=== PATIENT | male | born 1940 | race Caucasian/White ===

== ENCOUNTER 2017-02-24 10:14 | Inpatient (IN) | payer OTHER ==
[2016-11-24 09:28] VITALS: BMI 32.0
--- NOTE | 2016-11-24 10:08 | PAT Medication Instructions ---
Service Date Nov 24, 2016. Current Home Medication List Acetaminophen (Tylenol Arthritis Ext Rel), 650 MG PO Q8H PRN for Pain Acetaminophen/Codeine (Tylenol W/Codeine #3), 1 TAB PO Q6 PRN for Pain Alprazolam (Xanax), 0.25 MG PO DAILY PRN for Anxiety Aspirin (Aspirin Ec), 81 MG PO QAM Cholecalciferol (Vitamin D3), 1 TAB PO QPM Fluoxetine (Prozac), 20 MG PO QAM Glucosamine-Chondroitin (Osteo Bi-Flex Regular Str), 1 TAB PO BID Hydrocortisone (Hydrocortisone), 1 APPLN TOP BID PRN for PRN Isosorbide Mononitrate (Isosorbide Mononitrate), 30 MG PO HS Losartan Potassium (Cozaar), 50 MG PO BID Nitroglycerin (Nitrostat), 0.4 MG UT PRN PRN for CHEST PAIN [place]-3 Fatty Acids ([place] 3), 1 CAP PO QPM Polyethylene Glycol-Propylene (Systane), 1 DROPS OP QID PRN for PRN Rosuvastatin Calcium (Crestor), 5 MG PO HS Zolpidem Tartrate (Zolpidem Tartrate), 1 TAB PO HS PRN for Insomnia Medication Instructions For Your Scheduled Surgery - Check with surgeon/wearing apparel shaker for instructions: Aspirin (Aspirin Ec), 81 MG PO QAM - Hold the following medications 2 weeks prior to surgery: [place]-3 Fatty Acids ([place] 3), 1 CAP PO QPM Glucosamine-Chondroitin (Osteo Bi-Flex Regular Str), 1 TAB PO BID - Hold the following medications 24 hours prior to surgery: Hydrocortisone (Hydrocortisone), 1 APPLN TOP BID PRN for PRN - Hold the following medications the morning of surgery: Losartan Potassium (Cozaar), 50 MG PO BID Cholecalciferol (Vitamin D3), 1 TAB PO QPM - Take the following medications the morning of surgery with a sip of water: Polyethylene Glycol-Propylene (Systane), 1 DROPS OP QID PRN for PRN (if needed) Nitroglycerin (Nitrostat), 0.4 MG UT PRN PRN for CHEST PAIN (if needed) Fluoxetine (Prozac), 20 MG PO QAM Alprazolam (Xanax), 0.25 MG PO DAILY PRN for Anxiety (if needed) Acetaminophen (Tylenol Arthritis Ext Rel), 650 MG PO Q8H PRN for Pain (if needed) Acetaminophen/Codeine (Tylenol W/Codeine #3), 1 TAB PO Q6 PRN for Pain (okay to take up to 4 hours prior to surgery if needed) - Take the following medications as scheduled the night before surgery: Zolpidem Tartrate (Zolpidem Tartrate), 1 TAB PO HS PRN for Insomnia (if needed) Polyethylene Glycol-Propylene (Systane), 1 DROPS OP QID PRN for PRN (if needed) Rosuvastatin Calcium (Crestor), 5 MG PO HS Isosorbide Mononitrate (Isosorbide Mononitrate), 30 MG PO HS Nitroglycerin (Nitrostat), 0.4 MG UT PRN PRN for CHEST PAIN (if needed) Losartan Potassium (Cozaar), 50 MG PO BID Alprazolam (Xanax), 0.25 MG PO DAILY PRN for Anxiety (if needed) Acetaminophen (Tylenol Arthritis Ext Rel), 650 MG PO Q8H PRN for Pain (if needed) Acetaminophen/Codeine (Tylenol W/Codeine #3), 1 TAB PO Q6 PRN for Pain (if needed) If you have any questions please call us at [phone] (Dawn David PA-C ) or [phone] or [phone]
--- NOTE | 2016-11-24 10:44 | DIAGNOSTIC IMAGING REPORT ---
CHEST PREADMISSION(PA/LAT) HISTORY: Preop. COMPARISON: None. FINDINGS: The lungs are clear. Cardiac silhouette is normal in size. No pleural effusions. No pneumothorax. Poststernotomy changes. IMPRESSION: No acute process. Electronically signed by: Cruz Catalan M.D. 11/24/2016 10:42 AM
[2016-11-24 10:48] LABS: MEAN CORPUSCULAR HGB CONC 34.9 g/dl (32-36); MEAN PLATELET VOLUME 9.3 fL (7.4-10.4); PLATELET COUNT 229 K/uL (130-400)
[2016-11-24 10:49] LABS: URINE APPEARANCE CLEAR (CLEAR); URINE BILIRUBIN NEG (NEG); URINE COLOR YELLOW; URINE NITRITE NEG (NEG); URINE SPECIFIC GRAVITY 1.019 (1.000-1.030); UROBILINOGEN NEG (NEG)
[2016-11-24 10:54] LABS: MANUAL MICROSCOPIC REQUIRED? NO; REVIEW REQ? NO
[2016-11-24 11:20] LABS: BASO % 0.4 %; BASO ABS # 0.03 K/uL (0-0.2); COMPLETE YES; EOS % 1.7 %; HEMATOCRIT 42.4 % (42-52); IG% 0.1 %; LYMPH % 34.7 %; MONO % 8.8 %; NEUT % 54.3 %; RED BLOOD COUNT 4.93 M/uL (4.7-6.1); WHITE BLOOD COUNT 8.06 K/uL (4.8-10.8)
[2016-11-24 11:29] LABS: BUN/CREATININE RATIO 21.3 (10-20); CALCIUM 9.2 mg/dl (8.5-10.1); CREATININE 0.98 mg/dl (0.60-1.40); POTASSIUM 4.1 mmol/L (3.5-5.1)
--- NOTE | 2016-12-30 07:36 | History & Physical Bridge Note ---
H&P Re-Evaluation Bridge Note: I have examined the patient, reviewed the History & Physical and in the interval since the performance of the History & Physical I have noted the following changes of clinical significance: No changes noted
[2017-02-09 12:23] LABS: BUN/CREATININE RATIO 18.1 (10-20); CALCIUM 8.9 mg/dl (8.5-10.1); CREATININE 0.92 mg/dl (0.60-1.40)
--- NOTE | 2017-02-23 15:35 | HISTORY & PHYSICAL EXAMINATION ---
DATE OF ADMISSION: 02/24/2017 CHIEF COMPLAINT: Back pain with bilateral leg pain, worsening with activity. HISTORY OF PRESENT ILLNESS: Mr. Rae is a patient who is well known to our practice. We have been following him for difficulties with his lower back for some time. He has known spinal stenosis which is multilevel in nature. It has gotten to the point where he can no longer stand or walk or perform his normal daily activities. At this point is considering surgical intervention. He has failed all conservative measures. He denies any other numbness, tingling or paresthesias. Denies any change in bladder or bowel function. PAST MEDICAL HISTORY: Significant for acid reflux, arthritis, hypertension, depression, and cardiac bypass surgery in 2007, hypercholesterolemia, shortness of breath. PAST SURGICAL HISTORY: Significant for carpal tunnel release in 1990. MEDICATIONS: Include Crestor, omeprazole, amlodipine, Celexa, Toprol, meclizine, alprazolam and Ecotrin. ALLERGIES: He has no listed drug allergies. REVIEW OF SYSTEMS: Negative except noted in HPI SOCIAL HISTORY: The patient is a 76-year-old male. He is with 5 children. Denies any alcohol or current tobacco use. Denies any illicit drug use. PHYSICAL EXAMINATION: GENERAL: Stands with an apparent level pelvis. Arnold line is midline. Moves slowly about the exam room. MUSCULOSKELETAL: Lower extremity motor exam reveals no focal atrophy. Strength 5/5 to detailed muscle testing without exception. Sensation intact to light touch. Proprioception is also intact. Gait stable. Visual huerta are grossly intact. ABDOMEN: Soft and nontender. EXTREMITIES: Calves are supple and nontender. Peripheral pulses are palpable. The patient is alert and oriented. CARDIOVASCULAR EXAMINATION: Reveals no gross abnormalities. Skin is intact. RADIOGRAPHIC IMAGES: Recent MRI of the lumbar spine performed and revealing multilevel spondylosis. There is significant spinal stenosis at the L2-3, L3-4, L4-5, and L5-S1 segments. This is graded moderate to severe in terms of central lateral recess and foraminal disease. ASSESSMENT: Multilevel multifactorial spinal stenosis, refractory to conservative measures. PLAN: At this point, we are considering possible surgical intervention. Surgically would perform lumbar decompression from L2 to sacrum. This will be done in conjunction with instrumented fusion. The main benefit of this approach is significant chance for reduction of his radicular complaints to a lesser degree his lower back pain. Risk of the surgery include but are not limited to from anesthetic, stroke, blindness, infection, bleeding requiring transfusion, incomplete relief of symptoms, adjacent level disease with need for reoperation. After a thorough discussion he will proceed with surgery as outlined above. He will contact us with any other questions or concerns. AMANDA
[2017-02-24] VITALS (7 sets, daily range): BP systolic 119–165; BP diastolic 64–80; PULSE 56–84; TEMP 36.4–37; O2SAT 96–98; Ht 162.6 cm; Wt 84.6 kg
[~2017-02-24] VITALS: Ht 162.6 cm; Wt 84.6 kg
[~2017-02-24 10:14] MED LIST: ACET-749 PO; ACET1TAB84 PO; ALPR-411 PO; ASPI81TA28 PO; CEFAZOLIN 2000 MG/60 ML D5W IV SCH; CHOL1000 PO; DC PCA ONE; FLUO20CA35 PO; GLUCTAB18 PO; HYDCR25 TOP; ISM20 PO; LACTATED RINGER'S 1000ML 1,000 ML IV SCH; LOSA50TA6 PO; NTRGSL/4 UT; OMEG12006 PO; POLYSOL4 OP; ROSU5TAB PO; ZOLP10TA6 PO
[2017-02-24] MEDS ORDERED: FENTANYL CITRATE INJ 50 MCG/1 ML 2 ML VIAL ONE ×3 (11:25→15:29)
[2017-02-24] MEDS ORDERED: MIDAZOLAM HCL 1 MG/ML 2ML VIAL ONE (11:25)
[2017-02-24] MEDS ORDERED: SODIUM CHLORIDE 0.9% PF 50 ML VIAL ONE (11:55)
[2017-02-24] MEDS ORDERED: BUPIVACAINE/EPINEPHRINE 0.5% MPF 1:200,000 30 ML VIAL ONE (11:55)
[2017-02-24] MEDS ORDERED: BACITRACIN 50000 UNIT VIAL ONE (11:55)
[2017-02-24] MEDS ORDERED: EpHEDrine SULFATE INJ 50 MG/ML AMP IV PRN (12:30)
[2017-02-24] MEDS ORDERED: MEPERIDINE HCL 25 MG/ML CARP IV PRN (12:30)
[2017-02-24] MEDS ORDERED: HYDROmorphone INJ 1 MG/ML SYR IV PRN (12:30)
[2017-02-24] MEDS ORDERED: ONDANSETRON INJ 2 MG/ML 2 ML VIAL IV PRN ×2 (12:30→15:15)
[2017-02-24] MEDS ORDERED: LABETALOL HCL IV 5 MG/ML 20ML IV PRN (12:30)
[2017-02-24] MEDS ORDERED: ATROPINE SULFATE 0.1 MG/ML 5ML SYR IV PRN (12:30)
[2017-02-24] MEDS ORDERED: HYDROmorphone INJ 2 MG/ML SYR/VIAL ONE (12:32)
[2017-02-24] MEDS ORDERED: DEXAMETHASONE SOD INJ 4 MG/ML VIAL ONE (14:13)
[2017-02-24] MEDS ORDERED: EpHEDrine SULFATE 50MG/5ML SYR ONE (14:13)
[2017-02-24] MEDS ORDERED: LIDOCAINE HCL 2% 2 ML VIAL (20MG/ML) ONE (14:13)
[2017-02-24] MEDS ORDERED: ROCURONIUM BROMIDE 10 MG/ML 5 ML VIAL ONE (14:13)
[2017-02-24] MEDS ORDERED: ONDANSETRON INJ 2 MG/ML 2 ML VIAL ONE ×2 (14:13→14:58)
[2017-02-24] MEDS ORDERED: PROPOFOL IV EMULSION 10 MG/ML 20 ML VIAL IV ONE (14:13)
[2017-02-24] MEDS ORDERED: SODIUM CHLORIDE 0.9% 1000ML 1,000 ML IV SCH (15:14)
--- NOTE | 2017-02-24 15:14 | [facility] Post Operative Brief Note ---
Immediate Operative Summary Operative Date Feb 24, 2017. Pre-Operative Diagnosis Multilevel multifactorial spinal stenosis, refractory to conservative measures Post-Operative Diagnosis Same as pre-operative diagnosis Procedure(s) Performed L2-S1 Lumbar Laminectomy, Decompression, Posterior Spinal Fusion, Instrumentation, Iliac [place] Fixation, Interbody Fusion With Application of Interbody Cage at L5-S1; Bone Morphogenetic Protein; [place] Surgeon Dr. Bogdan Dietrich Oyster Farmer Surgeon(s) Scooby Bruce PA-C Estimated Blood Loss 400ML Findings stenosis Specimens None per surgeon
[2017-02-24] MEDS ORDERED: hydrOXYzine HCL 25 MG TAB PO PRN (15:15)
[2017-02-24] MEDS ORDERED: SOD PHOSPHATE/SOD BIPHOSPHATE ENEMA 132 ML BTL PR PRN (15:15)
[2017-02-24] MEDS ORDERED: NALOXONE HCL 0.4 MG/1 ML VIAL/CARP IV PRN ×2 (15:15)
[2017-02-24] MEDS ORDERED: ACETAMINOPHEN 500 MG TAB PO PRN (15:15)
[2017-02-24] MEDS ORDERED: NITROGLYCERIN 0.4 MG SL PER TAB CHARGE UT PRN (15:15)
[2017-02-24] MEDS ORDERED: ALUMINUM/MAGNESIUM SUSP 30 ML UDC PO PRN (15:15)
[2017-02-24] MEDS ORDERED: ACETAMINOPHEN IV 100 ML IV PRN (15:15)
[2017-02-24] MEDS ORDERED: LORAZEPAM INJ 0.5 MG in SYRINGE 0 ML IV PRN (15:15)
[2017-02-24] MEDS ORDERED: METOCLOPRAMIDE HCL INJ 5 MG/ML 2 ML VIAL IV PRN (15:15)
[2017-02-24] MEDS ORDERED: MAGNESIUM HYDROXIDE SUSP 30 ML UDC PO PRN (15:15)
[2017-02-24] MEDS ORDERED: LORAZEPAM 0.5 MG TAB PO PRN (15:15)
[2017-02-24] MEDS ORDERED: DO NOT ADMINISTER FLU VACCINE PRN ×3 (15:15)
[2017-02-24] MEDS ORDERED: FAMOTIDINE 20 MG TAB PO PRN (15:15)
[2017-02-24] MEDS ORDERED: DO NOT ADMINISTER PNEUMOCOCCAL VACCINE PRN ×2 (15:15)
[2017-02-24] MEDS ORDERED: PROMETHAZINE HCL INJ 12.5 MG in SODIUM CHLORIDE 0.9% 50ML 50 ML IV PRN (15:15)
[2017-02-24] MEDS ORDERED: ZOLPIDEM TARTRATE 10 MG TAB PO PRN (15:15)
[2017-02-24] MEDS ORDERED: BISACODYL 10 MG SUPP PR PRN (15:15)
--- NOTE | 2017-02-24 15:29 | DIAGNOSTIC IMAGING REPORT ---
LUMBAR SPINE 2 OR 3 VIEW CLINICAL HISTORY: L2-S1 DECOMPRESSION COMPARISON STUDY: No previous studies for comparison. Fluoroscopy time: 33 seconds. FINDINGS: 3 fluoroscopic images demonstrate an L5-S1 discectomy with interbody spacer placement. There are bilateral pedicle screws at the L2, L3, L4, L5 and S1 levels with bilateral iliac bolts. There are interconnecting rods. A posterior decompression is noted. IMPRESSION: Fluoroscopic images demonstrating an L5-S1 discectomy and L2-S1 bilateral pedicle screw fusion with placement of iliac bolts. Electronically signed by: Chase Dowling M.D. 02/24/2017 3:27 PM Dictated Date/Time: 02/24/2017 3:25 PM
--- NOTE | 2017-02-24 15:44 | OPERATIVE REPORT ---
DATE OF OPERATION: 02/24/2017 PREOPERATIVE DIAGNOSES: Spinal stenosis, spondylolisthesis with degenerative scoliosis. POSTOPERATIVE DIAGNOSIS: Same. PROCEDURE PERFORMED: 1. Lumbar decompression, medial facetectomy, and foraminotomy L2-3, L3-4, L4-5, L5-S1. 2. Posterior spinal fusion L2-3, L3-4, L4-5, L5-S1. 3. Bilateral sacroiliac joint fusion. 4. Placement of posterior segmental instrumentation including bilateral iliac bolts using Medicrea rods and screws. 5. Interbody fusion L5-S1. 6. Placement of PEEK cage 9 x 22 mm at L5-S1. 7. Placement of locally harvested morcellized autograft in posterior gutters. 8. Placement of Infuse collagen sponge combined with Mastergraft in the posterior gutters and Bita bone graft in the interbody space. SURGEON: Dr. Bogdan Dietrich. NYLON HOT WIRE CUTTER: Scooby Bruce PA-C. Due to the complex nature of the procedure, the entire surgery was performed with the news assistant of Scooby Bruce PA-C. The it administrative assistant, under direct supervision, was involved in the actual performance of all aspects of the surgical procedure including hemostasis, tissue retraction and incision, instrument management, patient positioning, and wound closure. ANESTHESIA: General. DISPOSITION: The patient awakened and taken to PACU in stable condition. HISTORY OF PATIENT'S PROBLEMS: This is a 76-year-old male presents with above-mentioned diagnosis. After failing an extensive course of nonoperative care, elected to undergo the above-mentioned procedure. Risks, benefits, pros, cons, and alternatives were outlined in detail preoperatively. OPERATION AND FINDINGS: PROCEDURE: The patient was met with preoperatively, the case discussed and all questions were addressed. At that point the patient was taken back to the operative suite and after undergoing successful general intubation by the department of anesthesia was placed in prone position on Casimiro table atop Julian frame. All bony prominences were well padded and the eyes were inspected to ensure there was no external pressure placed upon them. At this point, the lumbar spine was prepped and draped in normal sterile fashion. Sharp dissection with the assistance of Bovie cautery performed down to and exposing the lamina and transverse processes of L2, L3, L4, L5 and sacral ala bilaterally. From a caudal to cephalad fashion, complete laminectomy of L5, 4, 3 and 2 was performed addressing severe central lateral recess and foraminal stenosis. We also noted a pars defect at L5-S1 level. After complete decompression, pedicle screws were then placed bilaterally in 2, 3, 4, L5, S1 and bilateral iliac bolts. Through a transforaminal approach on the left, a complete discectomy of L5-S1 was performed, endplates curetted to subcortical bleeding bone and a 9 x 22 mm PEEK cage filled with Bita bone grafting tapped into position. Appropriate size rods were then contoured, placed bilaterally and the transverse processes of L2, L3, L4, L5 and sacral ala and the bilateral SI joints were burred to subcortical bleeding bone. Infuse collagen sponge combined with Mastergraft and locally harvested morselized autograft was placed. A 7 flat RAY drain inserted. Incision was closed with 1-0 Vicryl in the fascia, 2-0 Vicryl subcutaneously, 4-0 Monocryl for final skin closure. Steri-Strips and sterile dressing placed. The patient was awakened and taken to PACU in stable condition. I attest to the content of the Intraoperative Record and any orders documented therein. Any exceptio ns are noted below.
[2017-02-24] MEDS ORDERED: FLOSEAL HEMOSTATIC MATRIX 10ML TOP ONE (15:46)
[2017-02-24] MEDS ORDERED: HYDROmorphone HCL 0.5MG/ML 50 ML CASSETTE ONE (15:55)
[2017-02-24] MEDS: FENTANYL CITRATE INJ 50 MCG/1 ML 2 ML VIAL IV PRN ×2 (16:12→16:17)
--- NOTE | 2017-02-24 16:14 | Anesthesiology Progress Note ---
Anesthesia Post Op Note Date & Time Feb 24, 2017 at 16:14 Vital Signs Pain Intensity: 5 Vital Signs Past 12 Hours Date Time Temp Pulse Resp B/P Pulse Ox O2 Delivery O2 Flow Rate FiO2 02/24/17 16:05 79 16 146/60 100 Mask 10 02/24/17 15:55 84 16 137/99 100 Mask 10 02/24/17 15:46 36.7 78 16 161/71 100 Mask 10 02/24/17 10:45 36.6 56 20 165/80 96 Room Air Notes Mental Status: alert / awake / arousable, participated in evaluation Pt Amnestic to Procedure: Yes Nausea / Vomiting: adequately controlled Pain: adequately controlled Airway Patency, RR, SpO2: stable & adequate BP & HR: stable & adequate Hydration State: stable & adequate Anesthetic Complications: no major complications apparent
[2017-02-24] MEDS: HYDROmorphone HCL 0.5MG/ML 50 ML CASSETTE IV PRN ×2 (16:52→23:13)
[2017-02-24] MEDS ORDERED: IMDSR30 (17:09)
[2017-02-24] MEDS ORDERED: VNTHFA/IN INH (20:14)
[2017-02-24] MEDS ORDERED: ALBUTEROL HFA 8 GM INHALER INH PRN (20:15)
--- NOTE | 2017-02-24 20:30 | Medical Consult ---
Consultation Date of Consultation: Feb 24, 2017. Attending Physician: Bogdan Dietrich D.O. Reason for Consultation: post-op medical management History of Present Illness 76 yoM with severe chronic back pain presents today for elective back surgery. He underwent a lumbar decompression from L2 to sacrum and fusion. He tolerated the operation well and currently, his pain is controlled, he is otherwise asymptomatic and is tolerating PO. Reviewed full medical history and all medications with him. ROS revealed no headache, chest pain, sore throat, SOB ( he is wearing oxygen post-op and doesn't wear oxygen at home, but denies any shortness of breath or real need for it), nausea, vomiting, abdominal pain, numbness or tingling in legs, diarrhea or any other issue at this time aside from expected post-op pain that is controlled with IV narcotics through a BUSINESS CONTINUITY COORDINATOR Past Medical/Surgical History Medical Problems: (1) Acid reflux Status: Chronic (2) Anxiety Status: Chronic (3) CAD (coronary artery disease) Status: Chronic (4) Cataract Status: Chronic (5) Depression Status: Chronic (6) H/O TIA (transient ischemic attack) and stroke Status: Chronic (7) HTN (hypertension) Status: Chronic (8) Hyperlipidemia Status: Chronic (9) Lumbar stenosis with neurogenic claudication Status: Chronic (10) Osteoarthritis Status: Chronic (11) Paroxysmal ventricular tachycardia Status: Chronic Surgical Problems: (1) History of carpal tunnel release Status: Chronic (2) S/P CABG (coronary artery bypass graft) Status: Chronic Family History Patient reports no known family medical history. Social History Smoking Status: Never Smoker Smokeless Tobacco Use: No Alcohol Use: none Drug Use: none Marital Status: Housing Status: lives with significant other Allergies Coded Allergies: Lisinopril (Verified Adverse Reaction, Mild, COUGH, 02/24/17) Home Medications Active Reported Ventolin Hfa (Albuterol) 200 Puffs/88634 Mcg Aers 2 Puffs INH Q6H PRN Isosorbide Mononitrate ER (Isosorbide Mononitrate) 30 Mg Tabcr HS Zolpidem Tartrate 10 Mg Tab 1 Tab PO HS PRN 30 Days Nitrostat (Nitroglycerin) 0.4 Mg Tab 0.4 Mg UT PRN PRN Miles 3 (Miles-3 Fatty Acids) 1 Cap Cap 1 Cap PO QPM Aspirin Ec (Aspirin) 81 Mg Tab 162 Mg PO QAM Vitamin D3 (Cholecalciferol) 1,000 Unit Tab 1 Tab PO QPM 90 Days Osteo Bi-Flex Regular Str (Glucosamine-Chondroitin) 1 Tab Tab 1 Tab PO BID Xanax (Alprazolam) 0.5 Mg Tab 0.25 Mg PO DAILY PRN Systane (Polyethylene Glycol-Propylene) 1 Lori Lori 1 Drops OP QID PRN Cozaar (Losartan Potassium) 50 Mg Tab 50 Mg PO BID Crestor (Rosuvastatin Calcium) 5 Mg Tab 5 Mg PO HS Tylenol Arthritis Ext Rel (Acetaminophen) 650 Mg Cplt 650 Mg PO Q8H PRN Prozac (Fluoxetine HCl) 20 Mg Cap 20 Mg PO QAM Current Inpatient Medications Current Inpatient Medications Medications (Trade) Dose Ordered Sig/Edward Route Start Time Stop Time Status Last Admin Dose Admin Lactated Ringer's 1,000 ml @ 15 mls/hr Q24H IV 02/24/17 06:00 02/25/17 05:59 Dexamethasone Sodium Phosphate 6 mg/Syringe 1.5 ml @ 1 mls/min Q8H IV 02/24/17 22:00 02/25/17 14:02 Promethazine HCl/ Sodium Chloride (Phenergan Inj/ Nss 50ml) 50.5 ml @ 202 mls/hr Q6H PRN IV 02/24/17 15:15 03/26/17 15:14 Ondansetron HCl (Zofran Inj) 4 mg Q6H PRN IV 02/24/17 15:15 03/26/17 15:14 Metoclopramide HCl (Reglan Inj) 10 mg Q6H PRN IV 02/24/17 15:15 03/26/17 15:14 Lorazepam 0.5 mg 0.5 mg Q8H PRN PO 02/24/17 15:15 03/26/17 15:14 Lorazepam/Syringe (Ativan Inj/ Syringe) 0.25 ml @ 1 mls/min Q8H PRN IV 02/24/17 15:15 03/26/17 15:14 Pneumococcal Polysaccharide Vaccine 1 ea PRN PRN N/A 02/24/17 15:15 03/26/17 15:14 Influenza Virus Vacc Triv Types A&B 1 ea PRN PRN N/A 02/24/17 15:15 03/26/17 15:14 Polyethylene (Miralax Powder Packet) 17 gm Q6 PO 02/26/17 06:00 03/28/17 05:59 Bisacodyl (Dulcolax Supp) 10 mg DAILY PRN [place] 02/24/17 15:15 03/26/17 15:14 Magnesium Hydroxide (Milk Of Magnesia Susp) 30 ml DAILY PRN PO 02/24/17 15:15 03/26/17 15:14 Hydromorphone HCl (Dilaudid Inj) 0.5-1mg prn moder... Q3H PRN IV 02/25/17 06:00 03/11/17 05:59 Oxycodone HCl 5-10mg prn moderate to sev... Q4H PRN PO 02/25/17 06:00 03/11/17 05:59 Cefazolin Sodium 2000 mg/Dextrose 60 ml @ 100 mls/hr Q8H IV 02/24/17 20:00 02/25/17 04:35 Sodium Chloride (Nss 1000ml) 1,000 ml @ 150 mls/hr Q6H40M IV 02/24/17 15:14 03/26/17 15:13 Acetaminophen 1000 mg 1,000 mg Q8H PRN PO 02/24/17 15:15 03/26/17 15:14 Acetaminophen (Ofirmev Iv) 100 ml @ 400 mls/hr Q8H PRN IV 02/24/17 15:15 03/26/17 15:14 Naloxone HCl (Narcan Inj) 0.1 mg Q5M PRN IV 02/24/17 15:15 03/26/17 15:14 Senna/Docusate Sodium (Senokot S Tab) 2 tab HS PO 02/24/17 21:00 03/26/17 20:59 Sodium Biphosphate/ Sodium Phosphate (Fleet Enema) 132 ml ONE PRN [place] 02/24/17 15:15 03/26/17 15:14 Hydroxyzine HCl (Vistaril Tab) 25 mg Q8H PRN PO 02/24/17 15:15 03/26/17 15:14 Al Hydroxide/Mg Hydroxide (Maalox Susp) 30 ml Q6H PRN PO 02/24/17 15:15 03/26/17 15:14 Famotidine (Pepcid Tab) 20 mg Q12 PRN PO 02/24/17 15:15 03/26/17 15:14 Diphenhydramine HCl (Benadryl Cap) 25 mg Q6H PRN PO 02/24/17 15:15 03/26/17 15:14 Naloxone HCl (Narcan Inj) 0.1 mg Q5M PRN IV 02/24/17 15:15 02/25/17 06:00 Hydromorphone HCl 25 mg 25 mg PRN PRN IV 02/24/17 15:15 02/25/17 06:00 02/24/17 16:52 25 MG Sodium Chloride (Nss 1000ml) 1,000 ml @ 15 mls/hr Q24H IV 02/24/17 15:14 02/25/17 06:00 Aspirin (Ecotrin Tab) 81 mg QAM PO 02/25/17 09:00 03/27/17 08:59 Fluoxetine HCl (Prozac Cap) 20 mg QAM PO 02/25/17 09:00 03/27/17 08:59 Isosorbide Mononitrate (Imdur Ext Rel Tab) 30 mg HS PO 02/24/17 21:00 03/26/17 20:59 Losartan Potassium (coZAAR TAB) 50 mg BID PO 02/24/17 21:00 03/26/17 20:59 Nitroglycerin (Nitrostat Tab) 0.4 mg PRN PRN [place] 02/24/17 15:15 03/26/17 15:14 Rosuvastatin Calcium (Crestor Tab) 5 mg HS PO 02/24/17 21:00 03/26/17 20:59 Zolpidem Tartrate (Ambien Tab) 10 mg HS PRN PO 02/24/17 15:15 03/26/17 15:14 Review of Systems Constitutional: No chills, No fever Eyes: No worsening of vision ENT: No sore throat Respiratory: No cough, No shortness of breath, No wheezing Abdomen: No constipation, No diarrhea, No nausea, No pain, No vomiting Musculoskeletal: + joint pain (OA chronic) Neurologic: No numbness/tingling Psychiatric: + anxiety (chronic issue, not present currently) Hematologic / Lymphatic: No abnormal bleeding/bruising Integumentary: No rash Physical Exam Date Time Temp Pulse Resp B/P Pulse Ox O2 Delivery O2 Flow Rate FiO2 02/24/17 18:35 36.4 71 18 119/66 97 Nasal Cannula 4.0 02/24/17 17:35 37.0 77 18 136/69 97 Nasal Cannula 02/24/17 17:05 36.7 78 18 154/76 97 Nasal Cannula 4.0 02/24/17 16:51 36.4 76 18 143/70 97 Nasal Cannula 4.0 02/24/17 16:26 36.3 70 16 143/62 100 Nasal Cannula 4 02/24/17 16:15 79 16 160/62 100 Nasal Cannula 4 02/24/17 16:05 79 16 146/60 100 Mask 10 02/24/17 15:55 84 16 137/99 100 Mask 10 02/24/17 15:46 36.7 78 16 161/71 100 Mask 10 02/24/17 10:45 36.6 56 20 165/80 96 Room Air GEN: WNWD, in no acute distress, alert and appropriate HEENT: NC/AT, normal sclerae CARDIO: reg rate, S1/2 heard without m/g/r LUNGS: CTA bilaterally, no crackles, rales or wheezes, good diaphragmatic excursion BACK: dressing in place over operative site-c/d/i, RAY drain containing bloody drainage is present. ABD: soft, non-tender, non-distended, no rebound or guarding EXTREMITY: RP and DP palpable 2+ bilat, no LE swelling or edema, extremities are warm and well-perfused NEURO: CN 2-12 grossly intact, sensation intact in lower extremities MUSC: 5/5 grossly in lower extremities SKIN: warm and dry Laboratory Results 11/24/16 10:14 Red Blood Count 4.93, Mean Corpuscular Volume 86.0, Mean Corpuscular Hemoglobin 30.0, Mean Corpuscular Hemoglobin Concent 34.9, Mean Platelet Volume 9.3, Neutrophils (%) (Auto) 54.3, Lymphocytes (%) (Auto) 34.7, Monocytes (%) (Auto) 8.8, Eosinophils (%) (Auto) 1.7, Basophils (%) (Auto) 0.4, Neutrophils # (Auto) 4.37, Lymphocytes # (Auto) 2.80, Monocytes # (Auto) 0.71, Eosinophils # (Auto) 0.14, Basophils # (Auto) 0.03 02/09/17 11:20 Test 11/24/16 00:00 11/24/16 10:14 02/09/17 11:20 Urine Color YELLOW Urine Appearance CLEAR (CLEAR) Urine pH 7.0 (4.5-7.5) Urine Specific [place] 1.019 (1.000-1.030) Urine Protein NEG (NEG) Urine Glucose (UA) NEG (NEG) Urine Ketones NEG (NEG) Urine Occult Blood NEG (NEG) Urine Nitrite NEG (NEG) Urine Bilirubin NEG (NEG) Urine Urobilinogen NEG (NEG) Urine Leukocyte Esterase NEG (NEG) White Blood Count 8.06 K/uL (4.8-10.8) Red Blood Count 4.93 M/uL (4.7-6.1) Hemoglobin 14.8 g/dL (14.0-18.0) Hematocrit 42.4 % (42-52) Mean Corpuscular Volume 86.0 fL (80-100) Mean Corpuscular Hemoglobin 30.0 pg (25-34) Mean Corpuscular Hemoglobin Concent 34.9 g/dl (32-36) Platelet Count 229 K/uL (130-400) Mean Platelet Volume 9.3 fL (7.4-10.4) Neutrophils (%) (Auto) 54.3 % Lymphocytes (%) (Auto) 34.7 % Monocytes (%) (Auto) 8.8 % Eosinophils (%) (Auto) 1.7 % Basophils (%) (Auto) 0.4 % Neutrophils # (Auto) 4.37 K/uL (1.4-6.5) Lymphocytes # (Auto) 2.80 K/uL (1.2-3.4) Monocytes # (Auto) 0.71 K/uL (0.11-0.59) Eosinophils # (Auto) 0.14 K/uL (0-0.5) Basophils # (Auto) 0.03 K/uL (0-0.2) RDW Standard Deviation 40.5 fL (36.4-46.3) RDW Coefficient of Variation 12.9 % (11.5-14.5) Immature Granulocyte % (Auto) 0.1 % Immature Granulocyte # (Auto) 0.01 K/uL (0.00-0.02) Anion Gap 8.0 mmol/L (3-11) Est Creatinine Clear Calc Drug Dose 64.9 ml/min Estimated GFR () 92.0 Estimated GFR (Non- 79.4 BUN/Creatinine Ratio 18.1 (10-20) Calcium Level 8.9 mg/dl (8.5-10.1) Assessment & Plan 1. s/p lumbar surgery for spinal stenosis -POD 0; surgery performed by Dr. Dietrich -post-operative pain well managed with Dilaudid BUSINESS CONTINUITY COORDINATOR -monitor for acute blood loss with CBC in am -pt encouraged to utilize spirometry to prevent post-op infection -PT/OT -activity and wound care orders per ortho protocol -will continue to follow through hospital stay 2. HTN-controlled, cont home meds as ordered including Losartan and Imdur 3. Depression/Anxiety-cont Prozac, Xanax on hold per surgery team 4. CAD s/p CABG-stable disease, no chest pain. Cont medical management as prescribed at home 5. h/o TIA-no residual deficits -cont ASA 162mg PO daily DVT Prophylaxis -per ortho protocol Code Status -full code Dispo -per ortho. Thank you for this consultation. We will follow the patient with you during their hospital stay. You can reach a member of the [facility] Hospitalist Team 12/06 via pager @ . You can reach me via cell @ [phone]. Nikki Leo DO [facility] Hospitalist
[2017-02-24] MEDS: CEFAZOLIN IV 2,000 MG in DEXTROSE 5% 50ML 50 ML IV SCH (21:02)
[2017-02-24] MEDS: SODIUM CHLORIDE 0.9% 1000ML 1,000 ML IV SCH ×2 (21:02→21:54)
[2017-02-24] MEDS: ISOSORBIDE MONONITRATE 30 MG TABCR PO SCH (21:07)
[2017-02-24] MEDS: ROSUVASTATIN CALCIUM 10 MG TAB PO SCH (21:07)
[2017-02-24] MEDS: LOSARTAN POTASSIUM 50 MG TAB PO SCH (21:07)
[2017-02-24] MEDS: DOCUSATE SODIUM/SENNA 50/8.6MG TAB PO SCH (21:08)
[2017-02-24] MEDS: DEXAMETHASONE INJ 6 MG in SYRINGE 0 ML IV SCH (21:08)
[2017-02-25] VITALS (7 sets, daily range): BP systolic 122–150; BP diastolic 32–80; PULSE 72–86; TEMP 36.4–36.7; O2SAT 93–96
[2017-02-25] MEDS: CEFAZOLIN IV 2,000 MG in DEXTROSE 5% 50ML 50 ML IV SCH (04:07)
[2017-02-25] MEDS: SODIUM CHLORIDE 0.9% 1000ML 1,000 ML IV SCH (04:11)
[2017-02-25] MEDS: DEXAMETHASONE INJ 6 MG in SYRINGE 0 ML IV SCH ×2 (05:30→14:18)
[2017-02-25] MEDS ORDERED: HYDROmorphone INJ 0.5 MG/0.5 ML SYR IV PRN (06:00)
[2017-02-25 06:02] LABS: BASO ABS # 0.01 K/uL (0-0.2); COMPLETE YES; HEMATOCRIT 34.5 % (42-52); IG% 0.5 %; LYMPH % 6.6 %; LYMPH ABS # 1.52 K/uL (1.2-3.4); MEAN CELL VOLUME 86.7 fL (80-100); MEAN CORPUSCULAR HEMOGLOBIN 29.9 pg (25-34); MEAN CORPUSCULAR HGB CONC 34.5 g/dl (32-36); MEAN PLATELET VOLUME 8.7 fL (7.4-10.4); MONO % 7.3 %; NEUT % 85.6 %; PLATELET COUNT 292 K/uL (130-400); RED BLOOD COUNT 3.98 M/uL (4.7-6.1); WHITE BLOOD COUNT 23.15 K/uL (4.8-10.8)
[2017-02-25] MEDS ORDERED: NURSING VERBAL MED ORDER ONE (06:15)
[2017-02-25] MEDS: OXYCODONE HCL IR 5 MG TAB (IMMEDIATE RELEASE) PO PRN ×4 (06:38→21:02)
[2017-02-25 06:44] LABS: BUN/CREATININE RATIO 13.9 (10-20); CALCIUM 8.2 mg/dl (8.5-10.1); CREATININE 1.7 mg/dl (0.60-1.40); POTASSIUM 4.1 mmol/L (3.5-5.1)
[2017-02-25] MEDS ORDERED: ASPIRIN 81 MG ECTAB PO SCH (09:00)
[2017-02-25] MEDS: LOSARTAN POTASSIUM 50 MG TAB PO SCH ×2 (09:09→21:39)
[2017-02-25] MEDS: FLUOXETINE HCL 20 MG CAP PO SCH (09:10)
[2017-02-25] MEDS ORDERED: RXC5 PO (10:05)
--- NOTE | 2017-02-25 10:06 | Discharge Instructions ---
Discharge Instructions Date of Service Feb 25, 2017. Admission Reason for Admission: Lumbar Spinal Stenosis Discharge Discharge Diagnosis / Problem: stenosis Discharge Goals Goal(s): Improve function Activity Recommendations Activity Limitations: per Instructions/Follow-up section . Instructions / Follow-Up Instructions / Follow-Up ACTIVITY RECOMMENDATIONS: SELF CARE INSTRUCTIONS AFTER THORACIC/LUMBAR FUSIONS 1. You may walk to your tolerance. It is good exercise for your legs and back. Expect some back and intermittent leg aches and pains. 2. You may perform "counter-top" level activities (make a sandwich, cuauhtemoc with a project, etc.). 3. No bending or lifting of more than 10 pounds or back twisting of any nature (roll like a log when turning in bed). 4. You may ride in a car for 20-30 minutes at a time. No driving until after your first visit with your doctor. 5. Frequent changes of position and restricting sitting to 30 minutes at a time will help limit the amount of back spasms and stiffness you may experience. 6. You may discontinue the use of ambulatory aids (cane, crutches, etc.) once your strength and confidence allow. 7. 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 Do not take a tub bath, sit in a hot tub or go into a swimming pool until after your first recheck in the office. SPECIAL CARE INSTRUCTIONS: VERY IMPORTANT TO READ AND REVIEW A. Your surgical incision has been closed with a cosmetic suture under the skin that will dissolve in about 6 weeks. In 14 days, you can use a pair of clean scissors and cut the suture that is left outside of the skin at the ends of your incision. 1. The small skin tapes can be removed 7 days after surgery if they have not fallen off by that point. 2. You may keep the wound open to air as much as possible to promote healing after post-op day number 5 unless told otherwise by your doctor. 3. If you think the wound looks like it is becoming infected (redness or worsening drainage) and/or you are experiencing fever, chill or worsening back pain and muscle spasms, contact the office so that we may evaluate you as soon as possible. B. Complications are uncommon, but please contact us if you have any signs or symptoms of: 1. wound infection (fever higher than 102.5 degrees F, redness, separation of wound, drainage, or increasing pain from the incision) 2. blood clots in legs (pain, swelling, redness and warmth in legs) 3. urinary tract infection (fever higher than 102.5 degrees F, burning upon urination or increased frequency of urination) 4. nerve problems (inability to walk on your toes or heels, numbness, loss of bowel or bladder control) 5. any other symptoms that concern you C. Please call the office at if you have any concerns or questions about your operation or recovery. D. No smoking! Smoking drastically decreases the chance of a solid fusion. E. Do not take any anti-inflammatory medications (Indocin, Advil, Motrin, Aspirin, Naprosyn, etc.) as these may inhibit the chance of a solid fusion. Tylenol is okay to take for pain. MANAGING PAIN AFTER SPINAL SURGERY 1. Narcotic medication is intended for short-term use and will be provided for surgical pain. Surgical pain usually lasts for a period of 4-6 weeks. Narcotic medication includes Percocet, Vicodin, Darvocet, Tylenol #3 or Lortab. 2. Longer-term pain is more appropriately treated with non-narcotic medication such as Tylenol ES. 3. Muscle spasm is not appropriately treated with narcotics. Muscle relaxers such as Soma, Flexeril or Skelaxin can be used along with Tylenol ES. 4. Remember that we all live with some "aches and pains". This is not unusual or uncommon after an injury or as we get older. a. Back pain is expected and may include muscle spasms for 4 to 6 weeks after surgery. The pain should gradually improve. If the pain worsens for no apparent reason, please contact the office. b. Intermittent leg pain may also be experienced and should not be concerned about unless it worsens for no apparent reason. If so, please contact the office. 5. We will provide appropriate medication within the normal guidelines of their prescribed use. We will also be very cautious and aware of potential abuse and extended duration of patients' medication needs. a. Pain medications are for your comfort and to assist with sleep and rest so that the tissue can heal. They are not provided in order to return to normal activity and should not be used through the day. To do so or worsening pain at night can result from ongoing tissue damage and development of tolerance to the prescribed medicine. 6. Please allow 2-3 days to process refills. Prescriptions will not be mailed but must be picked up at the office. FOLLOW UP VISIT: Keep your scheduled follow-up appointment. Any questions, please call the office at . Current Hospital Diet Patient's current hospital diet: Regular Diet Discharge Diet Recommended Diet: Regular Diet Procedures Procedures Performed: L2-S1 Lumbar Laminectomy, Decompression, Posterior Spinal Fusion, Instrumentation, Iliac [place] Fixation, Interbody Fusion With Application of Interbody Cage at L5-S1; Bone Morphogenetic Protein; Bita Pending Studies Studies pending at discharge: no Medical Emergencies . Who to Call and When: Medical Emergencies: If at any time you feel your situation is an emergency, please call 911 immediately. . Non-Emergent Contact Non-Emergency issues call your: Primary Care Provider . "Provider Documentation" section prepared by Bogdan Dietrich. VTE Core Measure Inpt VTE Proph given/why not?: Eufemia Maya, SCD's
[2017-02-25] MEDS: ASPIRIN 81 MG ECTAB PO SCH (10:17)
--- NOTE | 2017-02-25 10:21 | PROGRESS NOTE ---
DATE: 02/25/2017 DATE: 02/25/2017. SUBJECTIVE: Postop day 1. Back pain controlled. Leg pain improved. Vital signs stable. T-max 36.5. RAY drained 130 mL over the last shift. Hematocrit this a.m. is 34.5. OBJECTIVE: On exam, he is in chair at bedside. Has good strength to testing, appears quite comfortable. ASSESSMENT: Status post lumbar decompression and fusion. PLAN: At this time, will initiate physical therapy, advance his bowel regimen. Assess his progress with PT/OT and determine whether he can go home or to rehab center. This will be determined in the next day or so.
--- NOTE | 2017-02-25 16:21 | Progress Note ---
Internal Med Progress Note Date of Service: Feb 25, 2017. Provider Documentation: SUBJECTIVE: The patient was seen and examined Has back pain but no other symptoms OBJECTIVE: Vital Signs-as noted below Exam: General-No distress at rest Eyes-normal ENT-normal Neck-supple Lungs-Clear to ausucltate bilaterally Heart-Regular,no murmur appreciated Abdomen-Benign,no asses,bowel sound present Extremities-no edema Neuro-AAox3 Lab data as noted below. ASSESSMENT & PLAN: S/P Lumbar Surgery for Spinal Stenosis -POD#1 ; surgery performed by Dr. 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 Cont medical management as prescribed at home No acute Issue H/o TIA-no residual deficits -cont ASA 162mg PO daily Again ,no acute issue HTN-controlled, cont home meds as ordered including Losartan and Imdur BP reasonably controlled Depression/Anxiety-cont Prozac, Xanax on hold per surgery team No acute issue DVT Prophylaxis -per ortho protocol Code Status -full code Dispo -per ortho. -Medically stable Vital Signs: Date Time Temp Pulse Resp B/P Pulse Ox O2 Delivery O2 Flow Rate FiO2 02/25/17 15:22 36.5 78 18 124/46 94 Room Air 02/25/17 13:12 86 96 02/25/17 11:55 Room Air 02/25/17 11:42 36.6 74 19 122/32 96 Room Air 02/25/17 09:34 96 Room Air 02/25/17 07:53 36.4 72 18 150/64 96 Room Air 02/25/17 07:40 Room Air 02/25/17 03:10 36.5 85 16 122/59 96 Nasal Cannula 4.0 02/25/17 00:00 Nasal Cannula 4.0 02/24/17 23:03 36.5 84 20 126/64 96 Nasal Cannula 4.0 02/24/17 20:49 36.4 74 16 135/67 98 Nasal Cannula 4.0 02/24/17 18:35 36.4 71 18 119/66 97 Nasal Cannula 4.0 02/24/17 17:35 37.0 77 18 136/69 97 Nasal Cannula 02/24/17 17:05 36.7 78 18 154/76 97 Nasal Cannula 4.0 02/24/17 17:00 Nasal Cannula 02/24/17 16:51 Nasal Cannula 4.0 02/24/17 16:51 36.4 76 18 143/70 97 Nasal Cannula 4.0 02/24/17 16:26 36.3 70 16 143/62 100 Nasal Cannula 4 Lab Results: Results Past 24 Hours Test 02/25/17 05:43 Range/Units White Blood Count 23.15 4.8-10.8 K/uL Red Blood Count 3.98 4.7-6.1 M/uL Hemoglobin 11.9 14.0-18.0 g/dL Hematocrit 34.5 42-52 % Mean Corpuscular Volume 86.7 80-100 fL Mean Corpuscular Hemoglobin 29.9 25-34 pg Mean Corpuscular Hemoglobin Concent 34.5 32-36 g/dl Platelet Count 292 130-400 K/uL Mean Platelet Volume 8.7 7.4-10.4 fL Neutrophils (%) (Auto) 85.6 % Lymphocytes (%) (Auto) 6.6 % Monocytes (%) (Auto) 7.3 % Eosinophils (%) (Auto) 0.0 % Basophils (%) (Auto) 0.0 % Neutrophils # (Auto) 19.83 1.4-6.5 K/uL Lymphocytes # (Auto) 1.52 1.2-3.4 K/uL Monocytes # (Auto) 1.68 0.11-0.59 K/uL Eosinophils # (Auto) 0.00 0-0.5 K/uL Basophils # (Auto) 0.01 0-0.2 K/uL RDW Standard Deviation 42.2 36.4-46.3 fL RDW Coefficient of Variation 13.4 11.5-14.5 % Immature Granulocyte % (Auto) 0.5 % Immature Granulocyte # (Auto) 0.11 0.00-0.02 K/uL Sodium Level 136 136-145 mmol/L Potassium Level 4.1 3.5-5.1 mmol/L Chloride Level 100 98-107 mmol/L Carbon Dioxide Level 24 21-32 mmol/L Anion Gap 12.0 3-11 mmol/L Blood Urea Nitrogen 24 7-18 mg/dl Creatinine 1.70 0.60-1.40 mg/dl Est Creatinine Clear Calc Drug Dose 35.1 ml/min Estimated GFR () 43.8 Estimated GFR (Non- 37.8 BUN/Creatinine Ratio 13.9 10-20 Random Glucose 170 70-99 mg/dl Calcium Level 8.2 8.5-10.1 mg/dl
[2017-02-25] MEDS: DOCUSATE SODIUM/SENNA 50/8.6MG TAB PO SCH (21:02)
[2017-02-25] MEDS: ISOSORBIDE MONONITRATE 30 MG TABCR PO SCH (21:39)
[2017-02-25] MEDS: ROSUVASTATIN CALCIUM 10 MG TAB PO SCH (21:39)
[2017-02-26] MEDS: POLYETHYLENE (MIRALAX) 17 GM PACK PO SCH ×3 (05:25→18:10)
[2017-02-26] MEDS: OXYCODONE HCL IR 5 MG TAB (IMMEDIATE RELEASE) PO PRN ×3 (05:30→18:11)
[2017-02-26 05:47] LABS: MEAN CORPUSCULAR HEMOGLOBIN 30.3 pg (25-34); MEAN CORPUSCULAR HGB CONC 35.7 g/dl (32-36); MEAN PLATELET VOLUME 8.5 fL (7.4-10.4); PLATELET COUNT 278 K/uL (130-400); RED BLOOD COUNT 3.53 M/uL (4.7-6.1); WHITE BLOOD COUNT 20.71 K/uL (4.8-10.8)
[2017-02-26 07:33] VITALS: BP 142/69; PULSE 80; TEMP 36.8; O2SAT 93
[2017-02-26] MEDS: ASPIRIN 81 MG ECTAB PO SCH (08:33)
[2017-02-26] MEDS: FLUOXETINE HCL 20 MG CAP PO SCH (08:33)
[2017-02-26] MEDS: LOSARTAN POTASSIUM 50 MG TAB PO SCH ×2 (08:34→21:12)
--- NOTE | 2017-02-26 09:58 | PROGRESS NOTE ---
DATE: 02/26/2017 SUBJECTIVE: Postop day #2. Back pain controlled. Leg pain improved. Vital signs stable. T-max 36.8. RAY drained 70 mL. Hematocrit this a.m. is 30.0. OBJECTIVE: On exam, the patient is in chair at bedside. Has good strength to testing. He appears comfortable. ASSESSMENT: Status post lumbar decompression and fusion. PLAN: At this time, we will continue physical therapy, advance his bowel regimen and anticipate home tomorrow with home health.
[2017-02-26 15:10] VITALS: BP 150/65; PULSE 68; TEMP 36.6; O2SAT 92
[2017-02-26 16:15] VITALS: O2SAT 92
[2017-02-26 21:10] VITALS: BP 114/69; PULSE 76; O2SAT 93
[2017-02-26] MEDS: ISOSORBIDE MONONITRATE 30 MG TABCR PO SCH (21:12)
[2017-02-26] MEDS: ROSUVASTATIN CALCIUM 10 MG TAB PO SCH (21:12)
[2017-02-26] MEDS: DOCUSATE SODIUM/SENNA 50/8.6MG TAB PO SCH (21:12)
[2017-02-26 23:30] VITALS: BP 147/83; PULSE 74; TEMP 36.5; O2SAT 92
[2017-02-27] MEDS: POLYETHYLENE (MIRALAX) 17 GM PACK PO SCH ×3 (01:39→13:08)
[2017-02-27] MEDS: OXYCODONE HCL IR 5 MG TAB (IMMEDIATE RELEASE) PO PRN ×3 (01:45→13:08)
[2017-02-27 06:40] VITALS: BP 148/78; PULSE 88; TEMP 36.5; O2SAT 96
[2017-02-27] MEDS: FLUOXETINE HCL 20 MG CAP PO SCH (07:21)
[2017-02-27] MEDS: ASPIRIN 81 MG ECTAB PO SCH (07:21)
[2017-02-27] MEDS: LOSARTAN POTASSIUM 50 MG TAB PO SCH (07:22)
--- NOTE | 2017-02-27 07:38 | Anesthesiology Progress Note ---
Anesthesia Post Op Note Date & Time Feb 27, 2017 at 07:37 Vital Signs Vital Signs Past 12 Hours Date Time Temp Pulse Resp B/P Pulse Ox O2 Delivery O2 Flow Rate FiO2 02/27/17 06:40 36.5 88 20 148/78 96 Room Air 02/26/17 23:30 36.5 74 18 147/83 92 Room Air 02/26/17 23:00 Room Air 02/26/17 21:10 76 114/69 93 Notes Mental Status: alert / awake / arousable, participated in evaluation Pt Amnestic to Procedure: Yes Nausea / Vomiting: adequately controlled Pain: adequately controlled Airway Patency, RR, SpO2: stable & adequate BP & HR: stable & adequate Hydration State: stable & adequate Anesthetic Complications: no major complications apparent
[2017-02-27 10:12] VITALS: BP 148/78; PULSE 88; TEMP 36.5; O2SAT 96
--- NOTE | 2017-02-27 11:38 | DISCHARGE SUMMARY ---
PRINCIPAL DIAGNOSIS: Spinal stenosis. HOSPITAL COURSE FOLLOWS: On 02/24/2017 patient underwent multilevel lumbar decompression and fusion, tolerated this well and taken to the orthopedic floor postoperatively. Postop day #1 he was up and ambulatory, progressed to postop day #2. Postop day #3 RAY drain decreased appropriately, pain well controlled. Bowels working. Subsequently discharged home. Discharge orders and instructions found on the chart for further review.
[2017-03-02] MEDS ORDERED: CEFU1TAB36 PO (14:23)
== END 2017-02-27 14:13 | disposition home health service (06) | DRG 460 ==
LOC: ENRESERVTM → ENRESERVDT → C.ACU 10:14 → C.3E 10:44
PROVIDERS: ADMIT Orthopaedic Surgery Orthopaedic Surgery of the Spine; ATTEND Orthopaedic Surgery Orthopaedic Surgery of the Spine
PROC: 0SG704Z Fusion of Right Sacroiliac Joint with Internal Fixation Device, Open Approach (ICD-10-PCS; principal; 2017-02-24 12:50)
PROC: 0SG3071 Fusion of Lumbosacral Joint with Autologous Tissue Substitute, Posterior Approach, Posterior Column, Open Approach (ICD-10-PCS; principal; 2017-02-24 12:50)
PROC: 0SG00AJ Fusion of Lumbar Vertebral Joint with Interbody Fusion Device, Posterior Approach, Anterior Column, Open Approach (ICD-10-PCS; principal; 2017-02-24 12:50)
PROC: 0SG804Z Fusion of Left Sacroiliac Joint with Internal Fixation Device, Open Approach (ICD-10-PCS; principal; 2017-02-24 12:50)
PROC: 0SG1071 Fusion of 2 or more Lumbar Vertebral Joints with Autologous Tissue Substitute, Posterior Approach, Posterior Column, Open Approach (ICD-10-PCS; principal; 2017-02-24 12:50)
PROC: 0ST40ZZ Resection of Lumbosacral Disc, Open Approach (ICD-10-PCS; principal; 2017-02-24 12:50)
DX: M48.00 Spinal stenosis, site unspecified (principal); M41.80 Other forms of scoliosis, site unspecified; K21.9 Gastro-esophageal reflux disease without esophagitis; I10 Essential (primary) hypertension; Z95.1 Presence of aortocoronary bypass graft; E78.00 Pure hypercholesterolemia, unspecified; I25.10 Atherosclerotic heart disease of native coronary artery without angina pectoris; Z86.73 Personal history of transient ischemic attack (TIA), and cerebral infarction without residual deficits

== ENCOUNTER 2017-02-28 03:41 | Inpatient (IN) | payer OTHER ==
[2017-02-28] VITALS (10 sets, daily range): BP systolic 124–182; BP diastolic 57–82; PULSE 73–86; TEMP 36.5–37.8; O2SAT 96–99; Ht 162.6 cm; Wt 84.6 kg
[~2017-02-28] VITALS: Ht 162.6 cm; Wt 84.6 kg
[~2017-02-28 03:41] MED LIST changes: -ACET-749 PO; -CEFAZOLIN 2000 MG/60 ML D5W IV SCH; -DC PCA ONE; -HYDCR25 TOP; +IMDSR30; -ISM20 PO; -LACTATED RINGER'S 1000ML 1,000 ML IV SCH; +RXC5 PO; +VNTHFA/IN INH
[2017-02-28] MEDS ORDERED: ZOLPIDEM TARTRATE 5 MG TAB PO PRN (06:00)
[2017-02-28] MEDS ORDERED: ALBUTEROL HFA 8 GM INHALER INH PRN (06:00)
[2017-02-28] MEDS ORDERED: ONDANSETRON INJ 2 MG/ML 2 ML VIAL IV PRN (06:00)
[2017-02-28] MEDS ORDERED: NON-FORMULARY MEDICATION (Acetaminophen (Tylenol Arthritis Ext Rel) 650 MG) PO PRN (06:00)
[2017-02-28] MEDS ORDERED: ALUMINUM/MAGNESIUM/SIMETH (MAALOX MAX) 30 ML UDC PO PRN (06:00)
[2017-02-28] MEDS ORDERED: ZOLPIDEM TARTRATE 10 MG TAB PO PRN (06:00)
[2017-02-28] MEDS ORDERED: ALPRAZOLAM 0.5 MG TAB PO PRN (06:00)
[2017-02-28] MEDS ORDERED: MAGNESIUM HYDROXIDE SUSP 30 ML UDC PO PRN (06:00)
[2017-02-28] MEDS ORDERED: NITROGLYCERIN 0.4 MG SL PER TAB CHARGE UT PRN (06:00)
[2017-02-28] MEDS ORDERED: ARTIFICIAL TEARS OP SOLN OP PRN ×2 (06:15)
[2017-02-28] MEDS ORDERED: POLYETHYLENE (MIRALAX) 17 GM PACK PO PRN (06:15)
[2017-02-28 06:41] LABS: HEMATOCRIT 31.5 % (42-52); MEAN CELL VOLUME 88.7 fL (80-100); MEAN CORPUSCULAR HEMOGLOBIN 29.9 pg (25-34); MEAN CORPUSCULAR HGB CONC 33.7 g/dl (32-36); MEAN PLATELET VOLUME 8.9 fL (7.4-10.4); PLATELET COUNT 259 K/uL (130-400); RED BLOOD COUNT 3.55 M/uL (4.7-6.1); WHITE BLOOD COUNT 13.68 K/uL (4.8-10.8)
[2017-02-28 06:58] LABS: BUN/CREATININE RATIO 21.6 (10-20); C-REACTIVE PROTEIN 7.8 mg/dl (0-0.29); CALCIUM 7.5 mg/dl (8.5-10.1); CREATININE 0.85 mg/dl (0.60-1.40)
[2017-02-28] MEDS: FLUOXETINE HCL 20 MG CAP PO SCH (08:41)
[2017-02-28] MEDS: ASPIRIN 81 MG ECTAB PO SCH (08:41)
[2017-02-28] MEDS: LOSARTAN POTASSIUM 50 MG TAB PO SCH ×2 (08:42→21:55)
--- NOTE | 2017-02-28 08:53 | ORTHOPEDIC CONSULTATION ---
DATE OF CONSULTATION: 02/28/2017 DATE OF CONSULTATION: 02/28/2017. HISTORY OF PRESENT ILLNESS: The patient was admitted last evening. Apparently went home, had taken his medication without any food and became somewhat sick. He was taken to the Emergency Room and admitted for observation last evening. This morning he feels "great." He says he could take several laps without difficulty. He denies any leg pain. Back pain well controlled. No nausea or vomiting this morning. PHYSICAL EXAMINATION: VITAL SIGNS: Stable. T-max 36.6. He does have a Barajas catheter in place. He exhibits excellent strength to testing, is able to sit up with exam. LABORATORY DATA: Laboratory studies demonstrate a white count of 13, hematocrit 31.5. Sed rate 18. All this is normal postoperative labwork. ASSESSMENT: Status post multilevel lumbar decompression and fusion. PLAN: At this time, patient certainly had a bit of an issue last evening, feels much better today. I am certainly comfortable with him returning home today pending medical evaluation and clearance.
[2017-02-28] MEDS ORDERED: NON-FORMULARY MEDICATION (Glucosamine-Chondroitin (Osteo Bi-Flex Regular Str) 1 TAB) PO SCH (09:00)
[2017-02-28] MEDS: OXYCODONE HCL IR 5 MG TAB (IMMEDIATE RELEASE) PO PRN ×3 (09:16→22:02)
[2017-02-28] MEDS: ACETAMINOPHEN 325 MG TAB PO PRN (12:27)
[2017-02-28 12:52] LABS: URINE APPEARANCE CLOUDY (CLEAR); URINE BILIRUBIN NEG (NEG); URINE COLOR YELLOW; URINE EPITHELIAL CELL AUTO 20-30 /lpf (0-5); URINE NITRITE NEG (NEG); URINE PH 7.5 (4.5-7.5); URINE SPECIFIC GRAVITY 1.016 (1.000-1.030); UROBILINOGEN NEG (NEG); ZZUR CULT IF INDIC CLEAN CATCH YES
--- NOTE | 2017-02-28 12:55 | DIAGNOSTIC IMAGING REPORT ---
CHEST ONE VIEW PORTABLE CLINICAL HISTORY: Infiltrates. COMPARISON STUDY: Chest radiograph February 27, 2017. FINDINGS: There are median sternotomy wires. There is no pneumothorax or pleural effusion. Moderate cardiomegaly is noted. There is no evidence of pulmonary edema. Infrahilar opacities shown on exam of February 27, 2017 have improved. IMPRESSION: 1. Interval improvement in infrahilar opacities since exam of February 27, 2017. 2. Moderate cardiomegaly without evidence of pulmonary edema. Electronically signed by: Chase Dowling M.D. 02/28/2017 12:53 PM Dictated Date/Time: 02/28/2017 12:51 PM
[2017-02-28 12:59] LABS: MANUAL MICROSCOPIC REQUIRED? NO; REVIEW REQ? NO
[2017-02-28 13:00] LABS: SULFASALICYLIC ACID POS (NEG)
--- NOTE | 2017-02-28 13:15 | HISTORY & PHYSICAL EXAMINATION ---
DATE OF ADMISSION: 02/28/2017 CHIEF COMPLAINT: Confusion, fever. HISTORY OF PRESENT ILLNESS: This is a 76-year-old male with past medical history significant for GERD, anxiety, CAD, depression, history of TIAs, hypertension, hyperlipidemia, lumbar stenosis, osteoarthritis, paroxysmal ventricular tachycardia, status post back surgery and discharged yesterday, went to [facility] for fever and confusion and was transferred back here because the surgery was done here recently. The patient seems confused, alert and oriented to name and place, but thinks he is in December and somewhat sweaty and had some mild temperature. Denies any pain. Denies any chest pain. Denies shortness of breath. Denies cough. Denies any dizziness. Denies nausea, vomiting, abdominal pain. Says he wants to go home. ALLERGIES: TO LISINOPRIL. PAST MEDICAL HISTORY: As mentioned above. PAST SURGICAL HISTORY: Carpal tunnel release, status post CABG, and status post back surgery. MEDICATIONS: Ventolin 2 puffs q. 6 hours p.r.n., isosorbide mononitrate 30 mg p.o. at bedtime, zolpidem 10 mg p.o. at bedtime p.r.n., Nitrostat 0.4 mg sublingual p.r.n., omega-3 fatty acid 1 capsule p.o. q.p.m., aspirin enteric-coated 162 mg p.o. q.a.m., vitamin D 1000 units p.o. q.p.m., Osteo Bi-Flex 1 tablet p.o. b.i.d., Xanax 0.25 mg p.o. daily p.r.n., Cozaar 50 mg p.o. b.i.d., Crestor 5 mg p.o. at bedtime, Tylenol Arthritis 650 mg p.o. every 8 hours p.r.n., Prozac 20 mg p.o. q.a.m. FAMILY HISTORY: No reports of family history. SOCIAL HISTORY: Never smoked. No alcohol use. No tobacco use. , lives with his significant other. REVIEW OF SYMPTOMS: As per HPI. Rest of review of symptoms negative. PHYSICAL EXAMINATION: GENERAL: The patient is of moderate build, somewhat confused. VITAL SIGNS: Temperature 37.4, pulse 77, respiratory rate 18, blood pressure 164/58, oxygen 99% room air. HEENT: No pallor. No icterus. NECK: No JVD. No neck masses. CARDIOVASCULAR: S1, S2 heard. Regular rate and rhythm. No murmur, no gallop. RESPIRATORY: Clear to auscultation bilaterally. No wheezing, no crackles. ABDOMEN: Soft. Bowel sounds present. Nontender. No distention. CENTRAL NERVOUS SYSTEM: Alert and oriented x2. Somewhat confused. Moves his extremities. LABORATORY DATA: WBC 13, hemoglobin 10.6, hematocrit 31.5, platelets 259. Sodium 139, potassium 4, chloride 107, CO2 26, BUN 18, creatinine 0.8, serum glucose 117, calcium 7.5. Urinalysis negative. ASSESSMENT AND PLAN: This is a 76-year-old who had recent back surgery, presents with confusion and fever. 1. Fever and confusion. We will check blood culture and urine cultures. Recent back surgery. Ortho on board. We empirically started Rocephin. Gentle fluids. Close monitor. 2. Back surgery. Management as per ortho. PT/OT. 3. History of coronary artery disease, status post coronary artery bypass graft. Continue his home medication of Imdur, statin, aspirin. 4. Hyperlipidemia. Continue statin. 5. Hypertension. Continue his home medication. We will follow his blood pressure while in the hospital. 6. History of anxiety. Continue Xanax p.r.n. 7. Deep venous thrombosis prophylaxis. Sequential compression devices for now. 8. Disposition: Monitor in medical floor. Expect discharge home and follow up with his family doctor and orthopedics. Level 1 full code. MTDD
[2017-02-28] MEDS: CEFTRIAXONE SOD INJ 1 GM in DEXTROSE 5% ADD-VANTAGE 50ML 50 ML IV SCH (15:48)
[2017-02-28] MEDS: ISOSORBIDE MONONITRATE 30 MG TABCR PO SCH (21:54)
[2017-02-28] MEDS: OMEGA-3 (PURIFIED FISH OIL) 1 GM CAP PO SCH (21:55)
[2017-02-28] MEDS: ROSUVASTATIN CALCIUM 10 MG TAB PO SCH (21:55)
[2017-02-28] MEDS: CHOLECALCIFEROL 1000 INTER.UNIT TAB PO SCH (21:56)
[2017-03-01] VITALS (8 sets, daily range): BP systolic 139–182; BP diastolic 61–86; PULSE 68–76; TEMP 36.5–36.8; O2SAT 95–98
[2017-03-01] MEDS: ACETAMINOPHEN 325 MG TAB PO PRN ×4 (04:08→20:42)
--- NOTE | 2017-03-01 08:49 | PROGRESS NOTE ---
DATE: 03/01/2017 SUBJECTIVE: Mr. Rae underwent a multilevel lumbar decompression and fusion by Dr. Dietrich on 02/24/2017. He was discharged February 27 and sent home. He then developed a fever and confusion; therefore his took him to the [place] [facility] yesterday. They subsequently transferred him to the hospitalist service at [facility] for further evaluation as this is where his recent spine surgery was. This morning, he is alert and oriented x2. He believes it is the year 2019. He states his back pain is controlled. He has no radicular leg pain. No other complaints. A Barajas catheter is intact. Labs are currently pending this morning. Urinalysis yesterday is positive for 2+ occult blood, moderate leukocyte esterase, 10,000-30,000 WBCs, 10,000-30,000 RBCs and 20,000-30,000 epithelial cells. Chest x-ray was also performed yesterday, which just shows interval improvement and infrahilar opacities since the 02/27/2017 exam as well as moderate cardiomegaly without evidence of pulmonary edema. Blood cultures are pending. PHYSICAL EXAMINATION: GENERAL: He is lying in bed. He is in no obvious distress. He is cooperative. VITAL SIGNS: T-max last evening was 37.8. Vital signs are otherwise stable. MUSCULOSKELETAL: His lumbar incision has some edema, but no erythema. There is no purulent drainage. No significant ecchymosis. Lower extremities neurovascularly intact. I was able to review his CT scan report only from [facility] yesterday. It was rather unremarkable. It shows just postsurgical changes L2-S1. ASSESSMENT: Status post multilevel lumbar decompression and fusion with postoperative confusion and temp. At this point in time, he is on IV Rocephin for antibiotic coverage. Will continue with DVT prophylaxis, TEDs and SCDs. He may be up and ambulatory ad elis. Continue with pain control. Again, we are currently awaiting further workup including blood cultures and urine cultures.
[2017-03-01 08:52] LABS: BUN/CREATININE RATIO 20.6 (10-20); CALCIUM 8.4 mg/dl (8.5-10.1); CREATININE 0.85 mg/dl (0.60-1.40); MAGNESIUM 2.2 mg/dl (1.8-2.4)
[2017-03-01 08:58] LABS: HEMATOCRIT 28.6 % (42-52); MEAN CELL VOLUME 87.5 fL (80-100); MEAN CORPUSCULAR HGB CONC 34.3 g/dl (32-36); MEAN PLATELET VOLUME 8.9 fL (7.4-10.4); PLATELET COUNT 315 K/uL (130-400); RED BLOOD COUNT 3.27 M/uL (4.7-6.1); WHITE BLOOD COUNT 15.82 K/uL (4.8-10.8)
[2017-03-01] MEDS: ASPIRIN 81 MG ECTAB PO SCH (09:35)
[2017-03-01] MEDS: LOSARTAN POTASSIUM 50 MG TAB PO SCH ×2 (09:36→20:39)
[2017-03-01] MEDS: FLUOXETINE HCL 20 MG CAP PO SCH (09:36)
[2017-03-01] MEDS: CEFTRIAXONE SOD INJ 1 GM in DEXTROSE 5% ADD-VANTAGE 50ML 50 ML IV SCH (14:18)
--- NOTE | 2017-03-01 16:09 | Progress Note ---
Internal Med Progress Note Date of Service: Mar 01, 2017. Provider Documentation: SUBJECTIVE: resting comfortably oriented x2 confused about the date has some soreness at surgery site denies sob or cough OBJECTIVE: Vital Signs-as noted below Exam: General-alert and awake and oriented ENT-normal hearing Neck-no neck masses Lungs-cta b/l no wheezing or crackles Heart-s1 and s2 heard regular rate and rhythm no murmurs Abdomen-soft bowel sounds present non tender no distension musculoskeletal s/p back surgery dressing intact Extremities- no erythema no edema Neuro-alert and awake moves extremities Lab data as noted below. ASSESSMENT & PLAN: This is a 76-year-old who had recent back surgery, presents with confusion and fever. 1. Fever and confusion. Recent back surgery. Ortho on board. on Rocephin urine cx no growth await blood cx. 2. Back surgery. Management as per ortho. PT/OT. 3. History of coronary artery disease, status post coronary artery bypass graft. Stable Continue his home medication of Imdur, statin, aspirin. 4. Hyperlipidemia. Continue statin. 5. Hypertension. Continue his home medication. We will follow his blood pressure while in the hospital. 6. History of anxiety. Continue Xanax p.r.n. 7. Deep venous thrombosis prophylaxis. Sequential compression devices for now. 8. Disposition: Monitor in medical floor. Expect discharge home and follow up with his family doctor and orthopedics. Level 1 full code. Vital Signs: Date Time Temp Pulse Resp B/P Pulse Ox O2 Delivery O2 Flow Rate FiO2 03/01/17 15:25 36.5 76 16 169/73 98 Room Air 03/01/17 09:28 70 98 03/01/17 07:30 Room Air 03/01/17 07:05 36.8 70 18 148/63 95 Room Air 03/01/17 03:30 36.6 02/28/17 23:30 37.8 86 18 124/57 97 Room Air 02/28/17 23:00 Room Air 02/28/17 21:54 147/68 Lab Results: Results Past 24 Hours Test 03/01/17 07:17 Range/Units White Blood Count 15.82 4.8-10.8 K/uL Red Blood Count 3.27 4.7-6.1 M/uL Hemoglobin 9.8 14.0-18.0 g/dL Hematocrit 28.6 42-52 % Mean Corpuscular Volume 87.5 80-100 fL Mean Corpuscular Hemoglobin 30.0 25-34 pg Mean Corpuscular Hemoglobin Concent 34.3 32-36 g/dl RDW Standard Deviation 43.1 36.4-46.3 fL RDW Coefficient of Variation 13.3 11.5-14.5 % Platelet Count 315 130-400 K/uL Mean Platelet Volume 8.9 7.4-10.4 fL Sodium Level 137 136-145 mmol/L Potassium Level 4.0 3.5-5.1 mmol/L Chloride Level 103 98-107 mmol/L Carbon Dioxide Level 27 21-32 mmol/L Anion Gap 7.0 3-11 mmol/L Blood Urea Nitrogen 18 7-18 mg/dl Creatinine 0.85 0.60-1.40 mg/dl Est Creatinine Clear Calc Drug Dose 70.3 ml/min Estimated GFR () 96.7 Estimated GFR (Non- 83.5 BUN/Creatinine Ratio 20.6 10-20 Random Glucose 125 70-99 mg/dl Calcium Level 8.4 8.5-10.1 mg/dl Magnesium Level 2.2 1.8-2.4 mg/dl
[2017-03-01] MEDS ORDERED: HydrALAZINE HCL 20 MG/ML VIAL IV. PRN (16:45)
[2017-03-01] MEDS: ISOSORBIDE MONONITRATE 30 MG TABCR PO SCH (20:37)
[2017-03-01] MEDS: ROSUVASTATIN CALCIUM 10 MG TAB PO SCH (20:38)
[2017-03-01] MEDS: OMEGA-3 (PURIFIED FISH OIL) 1 GM CAP PO SCH (20:39)
[2017-03-01] MEDS: CHOLECALCIFEROL 1000 INTER.UNIT TAB PO SCH (20:43)
[2017-03-01] MEDS ORDERED: NURSING VERBAL MED ORDER ONE (21:00)
[2017-03-02] MEDS: OXYCODONE HCL IR 5 MG TAB (IMMEDIATE RELEASE) PO PRN (02:55)
[2017-03-02 07:25] VITALS: BP 167/65; PULSE 72; TEMP 36.3; O2SAT 96
[2017-03-02] MEDS: ACETAMINOPHEN 325 MG TAB PO PRN ×2 (07:27→14:00)
[2017-03-02] MEDS: LOSARTAN POTASSIUM 50 MG TAB PO SCH (07:28)
[2017-03-02 07:30] LABS: BASO % 0.1 %; BASO ABS # 0.01 K/uL (0-0.2); COMPLETE YES; HEMATOCRIT 28.9 % (42-52); IG% 0.4 %; LYMPH % 19.3 %; LYMPH ABS # 2.74 K/uL (1.2-3.4); MEAN CELL VOLUME 86.5 fL (80-100); MEAN CORPUSCULAR HEMOGLOBIN 29.6 pg (25-34); MEAN CORPUSCULAR HGB CONC 34.3 g/dl (32-36); MONO % 7.9 %; NEUT % 71.3 %; PLATELET COUNT 357 K/uL (130-400); RED BLOOD COUNT 3.34 M/uL (4.7-6.1)
[2017-03-02 08:33] LABS: BUN/CREATININE RATIO 20.4 (10-20); CREATININE 0.79 mg/dl (0.60-1.40); MAGNESIUM 2.1 mg/dl (1.8-2.4)
[2017-03-02 09:00] LABS: CALCIUM 9.2 mg/dl (8.5-10.1)
[2017-03-02] MEDS: ASPIRIN 81 MG ECTAB PO SCH (09:15)
[2017-03-02] MEDS: FLUOXETINE HCL 20 MG CAP PO SCH (09:15)
[2017-03-02] MEDS ORDERED: CEFU1TAB36 PO (14:23)
--- NOTE | 2017-03-02 14:26 | Discharge Instructions ---
Discharge Instructions Date of Service Mar 02, 2017. Admission Reason for Admission: Fever, Recent Back Surgery Discharge Discharge Diagnosis / Problem: fever. UTI? Discharge Goals Goal(s): Decrease discomfort, Improve function Activity Recommendations Activity Limitations: resume your previous activity . Instructions / Follow-Up Instructions / Follow-Up FOLLOWUP WITH FAMILY DOCTOR Amy Longoria PA-C ON February AT 10:25AM FOLLOWUP WITH SCHEDULED. Current Hospital Diet Patient's current hospital diet: AHA Diet (Heart Healthy) Discharge Diet Recommended Diet: AHA Diet (Heart Healthy) Pending Studies Studies pending at discharge: no Medical Emergencies . Who to Call and When: Medical Emergencies: If at any time you feel your situation is an emergency, please call 911 immediately. . Non-Emergent Contact Non-Emergency issues call your: Primary Care Provider . . "Provider Documentation" section prepared by Dhaval Wood. VTE Core Measure Inpt VTE Proph given/why not?: SCD's
[2017-03-02 15:00] VITALS: BP 138/70; PULSE 63; TEMP 36.8; O2SAT 99
[2017-03-02 16:00] VITALS: BP 167/65; PULSE 72; TEMP 36.3; O2SAT 96
[2017-03-02] MEDS ORDERED: CEFUROXIME AXETIL 500 MG TAB PO ONE (16:00)
--- NOTE | 2017-03-02 17:04 | Progress Note ---
Internal Med Progress Note Date of Service: Mar 02, 2017. Provider Documentation: SUBJECTIVE: Alert and oriented has some pain at surgery site afebrile moved bowels wants to go home OBJECTIVE: Vital Signs-as noted below Exam: General-alert and awake and oriented ENT-normal hearing Neck-no neck masses Lungs-cta b/l no wheezing or crackles Heart-s1 and s2 heard regular rate and rhythm no murmurs Abdomen-soft bowel sounds present non tender no distension musculoskeletal s/p back surgery dressing intact Extremities- no erythema no edema Neuro-alert and awake moves extremities Lab data as noted below. ASSESSMENT & PLAN: This is a 76-year-old who had recent back surgery, presents with confusion and fever. 1. Fever and confusion. Recent back surgery. Ortho on board. on Rocephin urine cx no growth blood cx.no growth d/cristy on cefuroxime 2. Back surgery. Management as per ortho. PT/OT.f/u with ortho 3. History of coronary artery disease, status post coronary artery bypass graft. Stable Continue his home medication of Imdur, statin, aspirin. 4. Hyperlipidemia. Continue statin. 5. Hypertension. Continue his home medication. We will follow his blood pressure while in the hospital. 6. History of anxiety. Continue Xanax p.r.n. Discharged home Vital Signs: Date Time Temp Pulse Resp B/P Pulse Ox O2 Delivery O2 Flow Rate FiO2 03/02/17 16:00 36.3 72 18 96 Room Air 03/02/17 15:45 Room Air 03/02/17 15:00 36.8 63 16 138/70 99 Room Air 03/02/17 07:25 36.3 72 18 167/65 96 Room Air 03/02/17 07:15 Room Air 03/02/17 00:14 Room Air 03/01/17 23:42 152/70 03/01/17 23:40 36.6 68 16 156/63 96 Room Air Lab Results: Results Past 24 Hours Test 03/02/17 06:32 Range/Units White Blood Count 14.20 4.8-10.8 K/uL Red Blood Count 3.34 4.7-6.1 M/uL Hemoglobin 9.9 14.0-18.0 g/dL Hematocrit 28.9 42-52 % Mean Corpuscular Volume 86.5 80-100 fL Mean Corpuscular Hemoglobin 29.6 25-34 pg Mean Corpuscular Hemoglobin Concent 34.3 32-36 g/dl Platelet Count 357 130-400 K/uL Mean Platelet Volume 9.0 7.4-10.4 fL Neutrophils (%) (Auto) 71.3 % Lymphocytes (%) (Auto) 19.3 % Monocytes (%) (Auto) 7.9 % Eosinophils (%) (Auto) 1.0 % Basophils (%) (Auto) 0.1 % Neutrophils # (Auto) 10.13 1.4-6.5 K/uL Lymphocytes # (Auto) 2.74 1.2-3.4 K/uL Monocytes # (Auto) 1.12 0.11-0.59 K/uL Eosinophils # (Auto) 0.14 0-0.5 K/uL Basophils # (Auto) 0.01 0-0.2 K/uL RDW Standard Deviation 42.5 36.4-46.3 fL RDW Coefficient of Variation 13.3 11.5-14.5 % Immature Granulocyte % (Auto) 0.4 % Immature Granulocyte # (Auto) 0.06 0.00-0.02 K/uL Sodium Level 137 136-145 mmol/L Potassium Level 4.0 3.5-5.1 mmol/L Chloride Level 104 98-107 mmol/L Carbon Dioxide Level 25 21-32 mmol/L Anion Gap 8.0 3-11 mmol/L Blood Urea Nitrogen 16 7-18 mg/dl Creatinine 0.79 0.60-1.40 mg/dl Est Creatinine Clear Calc Drug Dose 75.6 ml/min Estimated GFR () 99.7 Estimated GFR (Non- 86.0 BUN/Creatinine Ratio 20.4 10-20 Random Glucose 120 70-99 mg/dl Calcium Level 9.2 8.5-10.1 mg/dl Magnesium Level 2.1 1.8-2.4 mg/dl
--- NOTE | 2017-03-02 18:59 | Discharge Summary ---
Discharge Summary Date of Service Mar 02, 2017. Discharge Summary Admission Date: Feb 28, 2017 at 04:33 Discharge Date: Mar 02, 2017 Discharge Disposition: Home Principal Diagnosis: FEVER UTI? Secondary Diagnoses/Problems: for GERD, anxiety, CAD, depression, history of TIAs, hypertension, hyperlipidemia, lumbar stenosis, osteoarthritis, paroxysmal ventricular tachycardia Procedures: CXR: 1. Interval improvement in infrahilar opacities since exam of February 27, 2017. 2. Moderate cardiomegaly without evidence of pulmonary edema. Consultations: ORTHOPEDICS Medication Reconciliation New Medications: Cefuroxime Axetil (Cefuroxime Axetil) 500 Mg Tab 1 TAB PO BID for 3 Days, #6 TAB Continued Medications: Acetaminophen (Tylenol Arthritis Ext Rel) 650 Mg Cplt 650 MG PO Q8H PRN for Pain, CAP Albuterol Hfa (Ventolin Hfa) 200 Puffs/74333 Mcg Aers 2 PUFFS INH Q6H PRN for SOB/Wheezing Alprazolam (Xanax) 0.5 Mg Tab 0.25 MG PO DAILY PRN for Anxiety, TAB Aspirin (Aspirin Ec) 81 Mg Tab 162 MG PO QAM Cholecalciferol (Vitamin D3) 1,000 Unit Tab 1 TAB PO QPM for 90 Days, TAB 3 Refills Fluoxetine (Prozac) 20 Mg Cap 20 MG PO QAM, CAP Glucosamine-Chondroitin (Osteo Bi-Flex Regular Str) 1 Tab Tab 1 TAB PO BID Isosorbide Mononitrate (Isosorbide Mononitrate ER) 30 Mg Tabcr HS Losartan Potassium (Cozaar) 50 Mg Tab 50 MG PO BID, TAB Nitroglycerin (Nitrostat) 0.4 Mg Tab 0.4 MG UT PRN PRN for CHEST PAIN, BTL [place]-3 Fatty Acids ([place] 3) 1 Cap Cap 1 CAP PO QPM Oxycodone HCl (Oxycodone HCl) 5 Mg Tab 5-10 MG PO Q4H PRN for Moderate - severe pain for 30 Days, #90 TAB Polyethylene Glycol-Propylene (Systane) 1 Lori Lori 1 DROPS OP QID PRN for PRN, #30 ML 6 Refills Rosuvastatin Calcium (Crestor) 5 Mg Tab 5 MG PO HS, TAB Zolpidem Tartrate (Zolpidem Tartrate) 10 Mg Tab 1 TAB PO HS PRN for Insomnia for 30 Days, #30 TAB Admission Information HPI (per Admitting provider): This is a 76-year-old male with past medical history significant for GERD, anxiety, CAD, depression, history of TIAs, hypertension, hyperlipidemia, lumbar stenosis, osteoarthritis, paroxysmal ventricular tachycardia, status post back surgery and discharged yesterday, went to [facility] for fever and confusion and was transferred back here because the surgery was done here recently. The patient seems confused, alert and oriented to name and place, but thinks he is in December and somewhat sweaty and had some mild temperature. Denies any pain. Denies any chest pain. Denies shortness of breath. Denies cough. Denies any dizziness. Denies nausea, vomiting, abdominal pain. Says he wants to go home. Physical Exam (per Admitting): GENERAL: The patient is of moderate build, somewhat confused. VITAL SIGNS: Temperature 37.4, pulse 77, respiratory rate 18, blood pressure 164/58, oxygen 99% room air. HEENT: No pallor. No icterus. NECK: No JVD. No neck masses. CARDIOVASCULAR: S1, S2 heard. Regular rate and rhythm. No murmur, no gallop. RESPIRATORY: Clear to auscultation bilaterally. No wheezing, no crackles. ABDOMEN: Soft. Bowel sounds present. Nontender. No distention. CENTRAL NERVOUS SYSTEM: Alert and oriented x2. Somewhat confused. Moves his extremities. Hospital Course This is a 76-year-old who had recent back surgery, presents with confusion and fever. 1. Fever and confusion. Recent back surgery. Ortho on board. on Rocephin urine cx no growth blood cx.no growth d/cristy on cefuroxime 2. Back surgery. Management as per ortho. PT/OT.f/u with ortho 3. History of coronary artery disease, status post coronary artery bypass graft. Stable Continue his home medication of Imdur, statin, aspirin. 4. Hyperlipidemia. Continue statin. 5. Hypertension. Continue his home medication. We will follow his blood pressure while in the hospital. 6. History of anxiety. Continue Xanax p.r.n. Discharged home Total time spent on discharge = 35MINUTES This includes examination of the patient, discharge planning, medication reconciliation, and communication with other providers. Discharge Instructions Discharge Instructions Date of Service Mar 02, 2017. Admission Reason for Admission: Fever, Recent Back Surgery Discharge Discharge Diagnosis / Problem: fever. UTI? Discharge Goals Goal(s): Decrease discomfort, Improve function Activity Recommendations Activity Limitations: resume your previous activity . Instructions / Follow-Up Instructions / Follow-Up FOLLOWUP WITH FAMILY DOCTOR Amy Longoria PA-C ON February AT 10:25AM FOLLOWUP WITH SCHEDULED. Current Hospital Diet Patient's current hospital diet: AHA Diet (Heart Healthy) Discharge Diet Recommended Diet: AHA Diet (Heart Healthy) Pending Studies Studies pending at discharge: no Medical Emergencies . Who to Call and When: Medical Emergencies: If at any time you feel your situation is an emergency, please call 911 immediately. . Non-Emergent Contact Non-Emergency issues call your: Primary Care Provider . . "Provider Documentation" section prepared by Dhaval Wood. VTE Core Measure Inpt VTE Proph given/why not?: SCD's
== END 2017-03-02 16:40 | disposition home health service (06) | DRG 864 ==
LOC: C.MSW 04:33 → C.MSN 03-01 00:42
PROVIDERS: ADMIT Hospitalist; ATTEND Internal Medicine
DX: R50.9 Fever, unspecified (principal); R41.0 Disorientation, unspecified; K21.9 Gastro-esophageal reflux disease without esophagitis; I25.10 Atherosclerotic heart disease of native coronary artery without angina pectoris; F32.9 Major depressive disorder, single episode, unspecified; Z86.73 Personal history of transient ischemic attack (TIA), and cerebral infarction without residual deficits; E78.5 Hyperlipidemia, unspecified; I10 Essential (primary) hypertension; Z79.82 Long term (current) use of aspirin; Z95.1 Presence of aortocoronary bypass graft; Z98.1 Arthrodesis status